=== PATIENT | female | born 2000 | race African-American/Black ===

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

== ENCOUNTER 2019-04-21 20:43 | Emergency (ER) | payer SELFPAY ==
--- NOTE | 2019-04-21 23:43 | ER Document Report ---
ED General - General Chief Complaint: Shortness Of Breath Stated Complaint: SHORTNESS OF BREATH Time Seen by Provider: 04/21/19 23:35 Primary Care Provider: [facility] [Provider Group] - Follow up as needed Notes: 19-year-old female, with obesity, and no other medical history other than remote asthma presents with an episode of chest tightness and inability to breathe out with shortness of breath began about an hour and a half ago at work and is now resolving. It happened 3 times in the last month and she has not been checked out. No wheezing no fever no cough. No throat swelling or allergic reaction type symptoms. Never been diagnosed with anxiety or panic and has no heart problems. TRAVEL OUTSIDE OF THE [place] IN LAST 30 DAYS: No - Related Data Allergies/Adverse Reactions: No Known Allergies Allergy (Verified 03/02/17 16:00) Past Medical History - Social History Smoking Status: Never Smoker Drug Abuse: Marijuana Family History: Reviewed & Not Pertinent Renal/ Medical History: Denies: Hx Peritoneal Dialysis Psychiatric Medical History: Reports: Hx Attention Deficit Hyperactivity Disorder Review of Systems - Review of Systems Notes: REVIEW OF SYSTEMS GEN: Denies fever, chills, weight loss ENT: Denies sore throat, nasal discharge, ear pain EYES: Denies blurry vision, eye pain, discharge CV: SEE HPI RESP: See HPI GI: Denies abdominal pain, nausea, vomiting, diarrhea MSK: Denies joint pain/swelling, edema, SKIN: Denies rash, skin lesions LYMPH: Denies swollen glands/lymph nodes NEURO: Denies headache, focal weakness or numbness, dizziness PSYCH: Denies depression, suicidal or homicidal ideation PHYSICAL EXAMINATION General: No acute distress, well-nourished Head: Atraumatic, normocephalic ENT: Mouth normal, oropharynx moist, no exudates or tonsillar enlargement Eyes: Conjunctiva normal, pupils equal, lids normal Neck: No JVD, supple, no guarding CVS: Normal rate, regular rhythm, no murmurs Resp: No resp distress, equal and normal breath sounds bilaterally GI: Nondistended, soft, no tenderness to palpation, no rebound or guarding Ext: No deformities, no edema, normal range of motion in upper and lower ext Back: No CVA or midline TTP Skin: No rash, warm Lymphatic: No lymphadeopathy noted Neuro: Awake, alert. Face symmetric. GCS 15. Physical Exam - Vital signs Vitals: Temp Pulse Resp BP Pulse Ox 98.9 F 87 15 136/80 H 100 04/21/19 20:58 04/21/19 20:58 04/21/19 20:58 04/21/19 20:58 04/21/19 20:58 Course - Re-evaluation Re-evalutation: 04/22/19 02:11 1-year-old female with intermittent shortness of breath and chest tightness without stimulus, resolving within an hour. Normal physical exam clear lungs normal EKG. Panic versus anxiety? No evidence of any serious cardia pulmonary illness. Patient stable for discharge home. I have discussed with the patient there likely diagnosis, aftercare plan, follow-up plans and my usual and customary return precautions. They verbalized understanding of this. - Vital Signs Vital signs: Temp Pulse Resp BP Pulse Ox 98.8 F 81 18 138/90 H 100 04/22/19 00:17 04/22/19 00:17 04/22/19 00:17 04/22/19 00:17 04/21/19 20:58 Discharge - Discharge Clinical Impression: Shortness of breath Condition: Good Disposition: HOME, SELF-CARE Instructions: Dyspnea, Nonspecific ([facility]) Referrals: [facility] [Provider Group] - Follow up as needed
[2019-04-22 00:19] VITALS: BP 138/90
--- NOTE | 2019-04-22 00:32 | EKG REPORT ---
SEVERITY:- ABNORMAL ECG - SINUS RHYTHM CONSIDER LEFT VENTRICULAR HYPERTROPHY : Confirmed by: Rashawn Victor 22-Apr-2019 00:31:56
== END 2019-04-22 00:18 | disposition home or self-care (01) ==
LOC: ER 20:43
DX: R06.02 Shortness of breath (principal); R07.9 Chest pain, unspecified; J45.909 Unspecified asthma, uncomplicated
CPT/HCPCS: 93005; 93010; 99284

== ENCOUNTER 2019-05-10 17:00 | Emergency (ER) | payer SELFPAY ==
--- NOTE | 2019-05-10 18:31 | ER Document Report ---
HPI - HPI Patient complains to provider of: left fingers pain Time Seen by Provider: 05/10/19 18:26 Onset/Duration: Gradual, Persistent, Waxing and waning Quality of pain: Achy Severity: Moderate Pain Level: 3 Context: 19 Yr old female pt, with the listed pmh, here for left mid hand pain/swelling and left 3rd finger pain/swelling over the last few weeks intermittently but worse since she has been "popping her knuckles more" since yest. no other actual known memorable fall/trauma or hx of this before. no hx of gout. she is right handed. otc meds not helping much. no surgeries on this hand. pt is a poor historian and some what elusive as to hx so hx some what limited secondary to this. no numbness, weakness or tingling. no surgeries on this extremity. hasn't sought care until now. no pain anywhere else. pt able to walk. denies intoxication and . pain worse with movement and palpation. better with rest. no other fall or trauma or associated sx Exacerbated by: Movement Relieved by: Remaining still Similar symptoms previously: Yes Recently seen / treated by doctor: No - ROS Systems Reviewed and Negative: Yes All other systems reviewed and negative - To include 10 systems, unless mentioned in the hpi. - REPRODUCTIVE Reproductive: DENIES: : Past Medical History - General Information source: Patient - Social History Smoking Status: Never Smoker Frequency of alcohol use: None Drug Abuse: None Family History: Reviewed & Not Pertinent Patient has suicidal ideation: No Patient has homicidal ideation: No Renal/ Medical History: Denies: Hx Peritoneal Dialysis Psychiatric Medical History: Reports: Hx Attention Deficit Hyperactivity Disorder - Immunizations Immunizations up to date: Yes Hx Diphtheria, Pertussis, Tetanus Vaccination: Yes Vertical Provider Document - CONSTITUTIONAL Agree With Documented VS: Yes Exam Limitations: No Limitations Notes: GENERAL_APPEARANCE: alert and oriented x 3, mood and affect wnl, cooperative, mild obvious discomfort. Pleasant, obese young black female, smiling, speaking in full sentences, in no sign of resp distress, easily sitting up, appears uncomfortable with manipulation of the left hand and left 3rd finger but otherwise well appearing. multiple acquaintances at bedside VITALS: reviewed, see vital signs table. HEAD: no_swelling\\tenderness on the head, normocephalic, atraumatic NECK: supple, no_neck_tenderness. full rom and full strength. HEART: RRR LUNGS: CTAB, good air exchange diffusely BACK: no_back_tenderness EXTREMITIES: good pulse in all extremities, left hand: has no erythema, mild swelling and mild-mod tenderness over mid-distal 2nd-4th metacarpals and proximal 3rd phalanx around mcp jt, and no_abrasions\\lacerations. Full rom and full strength in all extremities other than slight decreased left hand statement request clerk and left 3rd finger flexion secondary only to pain. neg kanavel sign. Normal gait. good hand statement request clerk in right hand. brisk cap refill. no other shortening or rotation of the limb or obvious deformities to suggest trauma unless otherwise noted. no other swelling or ttp. pt able to make and "ok" sign and give a thumbs up. neg snuff box ttp. neg finkl[place]in, tinel, and phalens. no sign of gout or septic joint, or flexor tenosynovitis. no sign of cellulitis or drainable fluid collection. no sausage digit. no subungual hematoma. no drainage, callor, streaking, induration, fluctuation, or bleeding. SKIN: warm, dry, good_color. no rash. no other grossly visible overlying skin changes to suggest trauma NEURO: cerebellar function intact, motor_intact and sensory_intact in injured_extremity. cranial nerves 2-12 intact - INFECTION CONTROL TRAVEL OUTSIDE OF THE [place] IN LAST 30 DAYS: No Course - Re-evaluation Re-evalutation: 05/10/19 18:31 Pt here for left hand pain x wks, worse since yest, mostly in her left middle finger and central hand with some swelling. denies any known injury however pt a poor historian. she does pop her knuckles alot but no actual memorable fall/trauma. no hx of prior left hand injuries. right handed. left hand injury shows possible anatomical variant vs fx in the area of pts pain but was otherwise neg per rad and reviewed by myself. rad also recommened ct or mri if clinical concern. case discussed with ed attending, dr snell, who advised to ahead and get a noncon left hand/wrist ct to further evaluate. left upper extremity ct noncon focused on these areas shows an abnormal calcification and/or fragmentation along the base of the third proximal phalanx at the MCP joint with some adjacent soft tissue swelling-findings may reflect subacute injury with some heterotopic bone formation but was otherwise neg per rad and reviewed by myself. pt again discussed with dr snell who advised to place the pt in a volar wrist splint and that no further workup was indicated at this time and pt just needed out pt f/u with the listed splint with ortho. pt placed in a left volar wrist splint via spares scheduler. motor and sensation intact post splint checked by myself. gave splint care. advised to wear the splint until seen by ortho. she was pain controlled here. will dc with a few vicodin. gave med precautions. advised sx care. advised to f/u with ortho in 1-2 days. return for any worsening symptoms. vss. well appearing. satting well on ra. neurononfocal. pt understands and agrees to plan. On reexam, pt improved with tx listed. remained stable. nontoxic. well appearing . pain controlled. tolerating po. requesting to go home. neurononfocal. case discussed with ER Attending, Dr. snell, who directed and agrees with plan of care and advised no further workup indicated at this time other than as listed above and pt is stable for dc home with close f/u with ortho Documentation achieved through voice recording which may lead to some occasional accidental typographical errors. Extensive efforts have been made to proof read documentation to make sure these are the least as possible. According to the [place] drug monitoring database, she has not received a [place] narcotics in the last 6 months. 05/10/19 22:38 Category Date Time Status Splint [Immobilize Extrem/Crutch (ED)] NOW Care 05/10/19 22:[address] LT UPPER EXTREMITY WITHOUT [CT] Stat Exams 05/10/19 20:54 Completed HAND LEFT 3 VIEWS [RAD] Stat Exams 05/10/19 19:14 Completed Hydrocodone/Acetaminophen [[place] 5-325 mg Tablet] Med 05/10/19 19:14 Dis continued 1 tab PO NOW ONE - Vital Signs Vital signs: Temp Pulse Resp BP Pulse Ox 98.5 F 85 16 147/96 H 100 05/10/19 17:52 05/10/19 17:52 05/10/19 17:52 05/10/19 17:52 05/10/19 17:52 Temp Pulse Resp BP Pulse Ox 05/10/19 23:14 98.0 F 83 17 144/58 H 98 05/10/19 17:52 98.5 F 85 16 147/96 H 100 - Diagnostic Test Radiology reviewed: Image reviewed, Reports reviewed Radiology results interpreted by me: Hand X-Ray 05/10/19 19:14 IMPRESSION: There is no obvious fracture or dislocation of the left hand. There may be variant anatomy of the capitate, articulation with the 3rd metacarpal, trapezoid, and its articulation with the scaphoid, of uncertain significance. This may be positional. CT or MRI may be used to further evaluate anatomy on a nonemergent basis if desired. Upper Extremity CT 05/10/19 20:54 IMPRESSION: Abnormal calcification and/or fragmentation along the base of the third proximal phalanx at the MCP joint with some adjacent soft tissue swelling. Findings may reflect subacute injury with some heterotopic bone formation. No evidence of abnormality in the carpal bones Discharge - Discharge Clinical Impression: Injury of left hand Qualifiers: Encounter type: initial encounter Qualified Code(s): S69.92XA - Unspecified injury of left wrist, hand and finger(s), initial encounter Finger injury Qualifiers: Encounter type: initial encounter Laterality: left Qualified Code(s): S69.92XA - Unspecified injury of left wrist, hand and finger(s), initial encounter Condition: Good Disposition: HOME, SELF-CARE Instructions: Fractured Metacarpal ([facility]) Additional Instructions: Follow-up with PCP/ortho in 1 to 2 days. Return for any worsening symptoms. do not work, drive, take tylenol, or operate machinery while taking the pain meds. wear the splint until seen by ortho. take the medication as prescribed. Prescriptions: Hydrocodone/Acetaminophen [[place] 5-325 mg Tablet] 1 tab PO Q6 PRN #12 tablet PRN Reason: For Pain Referrals: EVELYN SANTIAGO JR, [ACTIVE PROVISIONAL STAFF] - Follow up in 3-5 days
[2019-05-10] MEDS ORDERED: HYDROCODONE/ACETAMINOPHEN 5-325 MG TABLET PO ONE (19:14)
--- NOTE | 2019-05-10 19:44 | RADIOLOGY REPORT (SQ) ---
EXAM DESCRIPTION: HAND LEFT 3 VIEWS COMPLETED DATE/TIME: 05/10/2019 7:34 pm REASON FOR STUDY: left hand pain, worst in 3rd finger COMPARISON: None. EXAM PARAMETERS: NUMBER OF VIEWS: Three views. TECHNIQUE: AP, lateral and oblique radiographic images acquired of the left hand. LIMITATIONS: None. FINDINGS: MINERALIZATION: Normal. BONES: There is no obvious fracture or dislocation of the left hand. There may be variant anatomy of the capitate, articulation with the 3rd metacarpal, trapezoid, and its articulation with the scaphoid , of uncertain significance. This may be positional. JOINTS: No effusions. SOFT TISSUES: No soft tissue swelling. No foreign body. OTHER: No other significant finding. IMPRESSION: There is no obvious fracture or dislocation of the left hand. There may be variant douglas susan of the capitate, articulation with the 3rd metacarpal, trapezoid, and its articulation with the s caphoid, of uncertain significance. This may be positional. CT or MRI may be used to further evalua te anatomy on a nonemergent basis if desired. TECHNICAL DOCUMENTATION: JOB ID: [id number] [employer]- All Rights Reserved Reading location - IP/workstation name: [email or web address]
--- NOTE | 2019-05-10 22:31 | RADIOLOGY REPORT (SQ) ---
EXAM DESCRIPTION: CT UPPER EXTREMITY WITHOUT IV CONTRAST COMPLETED DATE/TME: 05/10/2019 20:54 CLINICAL HISTORY: 19 years Female abn xr. left wrist, distal rad/ulna thru fingers COMPARISON: None. TECHNIQUE: Contiguous axial CT images obtained through the without IV contrast. Reformatted images obtained. This exam was performed according to our department optimization program which includes automated exposure control, adjustment of the mA and/or kv according to patient size and/or use of iterative reconstruction technique. FINDINGS: Distal radius and ulna are intact. Articulation of the capitate and trapezoid with the metacarpals is normal. There is abnormal calcification along the third metacarpophalangeal joint along the volar surface with some cortical irregularity along the base of the proximal phalanx. Findings suggest old injury. An acute fracture is not identified. There is some surrounding soft tissue swelling. IMPRESSION: Abnormal calcification and/or fragmentation along the base of the third proximal phalanx at the MCP joint with some adjacent soft tissue swelling. Findings may reflect subacute injury with some heterotopic bone formation. No evidence of abnormality in the carpal bones
[2019-05-10 23:21] VITALS: BP 144/58
== END 2019-05-10 23:21 | disposition home or self-care (01) ==
LOC: ER 17:00
DX: S69.92XA Unspecified injury of left wrist, hand and finger(s), initial encounter (principal); M79.645 Pain in left finger(s); X58.XXXA Exposure to other specified factors, initial encounter
CPT/HCPCS: 99284

== ENCOUNTER 2020-01-01 07:32 | Emergency (ER) | payer SELFPAY ==
[2020-01-01 08:12] LABS: ABSOLUTE EOSINOPHILS # (AUTO) 0.2 10^3/uL (0.0-0.6); ABSOLUTE LYMPHOCYTES (AUTO) 1.8 10^3/uL (0.5-4.7); ABSOLUTE MONOCYTES (AUTO) 0.5 10^3/uL (0.1-1.4); ABSOLUTE NEUT (AUTO) 7.3 10^3/uL (1.7-8.2); BASOPHILS % (AUTO) 0.3 % (0-2); EOSINOPHILS % (AUTO) 2.4 % (0-6); HEMATOCRIT 39.6 % (36.0-47.0); HEMOGLOBIN 13.4 g/dL (12.0-15.5); LYMPHOCYTES % (AUTO) 18.4 % (13-45); MEAN CORPUSCULAR HEMOGLOBIN 26.1 pg (27.0-33.4); MEAN CORPUSCULAR HGB CONC 33.9 g/dL (32.0-36.0); MEAN CORPUSCULAR VOLUME 77 fl (80-97); MONOCYTES % (AUTO) 4.7 % (3-13); PLATELET COUNT 409 10^3/uL (150-450); RED BLOOD COUNT 5.14 10^6/uL (3.72-5.28); RED CELL DISTRIBUTION WIDTH 14.1 % (11.5-14.0); SEGMENTED NEUTROPHILS % (AUTO) 74.2 % (42-78); TOTAL CELLS COUNTED % (AUTO) 100 %; WHITE BLOOD COUNT 9.8 10^3/uL (4.0-10.5)
[2020-01-01 08:18] LABS: APPEARANCE,URINE SLIGHTLY-CLOUDY; BILIRUBIN,URINE NEGATIVE (NEGATIVE); COLOR,URINE YELLOW; GLUCOSE, URINE NEGATIVE (NEGATIVE); KETONES,URINE NEGATIVE (NEGATIVE); PROTEIN,URINE 30 mg/dL (NEGATIVE); URINE SPECIFIC GRAVITY 1.015; UROBILINOGEN,URINE NEGATIVE mg/dL (<2.0)
[2020-01-01 08:35] LABS: ALBUMIN 4.3 g/dL (3.5-5.0); ALKALINE PHOSPHATASE 76 U/L (38-126); ANION GAP 9 (5-19); ASPARTATE AMINO TRANSFERASE 20 U/L (14-36); BILIRUBIN,TOTAL 0.4 mg/dL (0.2-1.3); BLOOD UREA NITROGEN 11 mg/dL (7-20); CALCIUM 9.7 mg/dL (8.4-10.2); CARBON DIOXIDE 26 mmol/L (22-30); CHLORIDE 101 mmol/L (98-107); GLUCOSE 102 mg/dL (75-110); POTASSIUM 4.3 mmol/L (3.6-5.0)
--- NOTE | 2020-01-01 08:55 | ER Document Report ---
ED General - General Chief Complaint: Vaginal Bleeding Stated Complaint: VAGINAL BLEEDING Time Seen by Provider: 01/01/20 07:41 Mode of Arrival: Ambulatory Information source: Patient TRAVEL OUTSIDE OF THE [place] IN LAST 30 DAYS: No - HPI Notes: Patient presents complaint of vaginal bleeding that started yesterday. She states she had a normal menstrual cycle 1 week ago that ended. She states this is unusual for her to start bleeding again within 1 week. She states the bleeding has been heavy with some small clots. She does not believe that she is . No fevers. She has had some mild abdominal cramping that is been controlled with Motrin. No lightheadedness or dizziness. Patient describes the pain as mild. It radiates across her lower abdomen. Nothing makes it better or worse. - Related Data Allergies/Adverse Reactions: No Known Allergies Allergy (Verified 05/10/19 17:03) Past Medical History - General Information source: Patient Last Menstrual Period: Last week - Social History Smoking Status: Never Smoker Frequency of alcohol use: Rare Drug Abuse: None Family History: Reviewed & Not Pertinent Patient has homicidal ideation: No Pulmonary Medical History: Reports: Hx Asthma - childhood Renal/ Medical History: Denies: Hx Peritoneal Dialysis Psychiatric Medical History: Reports: Hx Attention Deficit Hyperactivity Disorder - Immunizations Immunizations up to date: Yes Hx Diphtheria, Pertussis, Tetanus Vaccination: Yes Review of Systems - Review of Systems Constitutional: denies: Chills, Fever Cardiovascular: denies: Chest pain, Palpitations Respiratory: denies: Cough, Short of breath -: Yes All other systems reviewed and negative Physical Exam - Vital signs Vitals: Temp Pulse Resp BP Pulse Ox 98.6 F 62 18 130/65 H 100 01/01/20 07:37 01/01/20 07:37 01/01/20 07:37 01/01/20 07:37 01/01/20 07:37 Interpretation: Normal - General General appearance: Appears well, Alert - HEENT Head: Normocephalic, Atraumatic Eyes: Normal Pupils: PERRL - Respiratory Respiratory status: No respiratory distress Chest status: Nontender Breath sounds: Normal Chest palpation: Normal - Cardiovascular Rhythm: Regular Heart sounds: Normal auscultation Murmur: No - Abdominal Inspection: Normal Distension: No distension Bowel sounds: Normal Tenderness: Nontender Organomegaly: No organomegaly - Back Back: Normal, Nontender - Extremities General upper extremity: Normal inspection, Nontender, Normal color, Normal ROM, Normal temperature General lower extremity: Normal inspection, Nontender, Normal color, Normal ROM, Normal temperature, Normal weight bearing. No: Andres's sign - Neurological Neuro grossly intact: Yes Cognition: Normal Orientation: AAOx4 Brenda Coma Scale Eye Opening: Spontaneous Brenda Coma Scale Verbal: Oriented [place] Coma Scale Motor: Obeys Commands [place] Coma Scale Total: 15 Speech: Normal Motor strength normal: LUE, RUE, LLE, RLE Sensory: Normal - Psychological Associated symptoms: Normal affect, Normal mood - Skin Skin Temperature: Warm Skin Moisture: Dry Skin Color: Normal Course - Re-evaluation Re-evalutation: 01/01/20 08:52 Patient presents with some dysfunctional uterine bleeding. She has stable vital signs. She has a soft benign abdominal exam. I do not feel that a pelvic exam would be beneficial at this time. I have discussed care with the patient and she is going to opt to try medroxyprogesterone and follow-up with [facility] as an outpatient. - Vital Signs Vital signs: Temp Pulse Resp BP Pulse Ox 98.6 F 62 18 130/65 H 100 01/01/20 07:44 01/01/20 07:37 01/01/20 07:37 01/01/20 07:37 01/01/20 07:37 - Laboratory Result Diagrams: 01/01/20 07:50 01/01/20 07:50 Laboratory results interpreted by me: 01/01/20 01/01/20 01/01/20 07:50 07:50 07:50 MCV 77 L MCH 26.1 L RDW 14.1 H Sodium 136.4 L Urine Protein 30 H Urine Blood LARGE H Leukocyte Esterase Rfl SMALL H Discharge - Discharge Clinical Impression: Dysfunctional uterine bleeding Condition: Stable Disposition: HOME, SELF-CARE Instructions: Dysfunctional Uterine Bleeding ([facility]) Additional Instructions: Please call a [facility]ercpa as soon as possible to arrange follow-up Prescriptions: Medroxyprogesterone Acet [Provera 10 Mg Tablet] 10 mg PO DAILY 10 Days #10 tablet Forms: Return to Work Referrals: ANDREW FLORES MD [ACTIVE STAFF] - Follow up in 1 week
[2020-01-01 09:16] VITALS: BP 131/82
== END 2020-01-01 09:17 | disposition home or self-care (01) ==
LOC: ER 07:32
DX: N93.8 Other specified abnormal uterine and vaginal bleeding (principal); R10.84 Generalized abdominal pain
CPT/HCPCS: 36415; 80053; 81001; 81025; 85025; 87086; 99284